=== PATIENT | male | born 1985 | race American Indian/Alaskan Native ===

== ENCOUNTER 2019-07-05 13:14 | Emergency (ER) | payer MEDICAID ==
[2019-07-05 13:24] VITALS: BP 133/77
--- NOTE | 2019-07-05 13:31 | Emergency Department Report ---
- General Chief Complaint: Wound/Laceration Stated Complaint: NOSE BLEED Time Seen by Provider: 07/05/19 13:27 Source: family Mode of arrival: Wheelchair Limitations: Other - History of Present Illness Initial Comments: History provided by the caregiver. pt is a 34 yo male brought in by his caregiver with c/o an abrasion to the right side of his nose that occurred this morning. the caregiver states she took off his breathing machine and he got a small scratch to the right side of the nose. the cargiver states there was some bleeding present. they deny any fall or injury. - Related Data Allergies Allergy/AdvReac Type Severity Reaction Status Date / Time No Known Allergies Allergy Unverified 07/05/19 13:16 ED Review of Systems ROS: Stated complaint: NOSE BLEED Other details as noted in HPI Comment: All other systems reviewed and negative ED Past Medical Hx - Past Medical History Hx Diabetes: Yes Additional medical history: SCIOLOSIS - Surgical History Additional Surgical History: HIP SURG - Social History Smoking Status: Never Smoker Substance Use Type: None ED Physical Exam - General Limitations: Other General appearance: alert, in no apparent distress - Head Head exam: Present: atraumatic, normocephalic - Eye Eye exam: Present: normal appearance - ENT ENT exam: Present: mucous membranes moist, other (0.5 cm abrasion to the right side of the nose with small amount of bleeding preset ) - Neurological Exam Neurological exam: Present: alert - Skin Skin exam: Present: warm, dry ED Course Vital Signs 07/05/19 13:22 Temperature 98.3 F Pulse Rate 98 H Respiratory 22 Rate Blood Pressure 133/77 O2 Sat by Pulse 98 Oximetry ED Medical Decision Making - Medical Decision Making Pt is a 34 yo male brought in by his caregiver with c/o an abrasion to the right side of his nose that occurred this morning. the caregiver states she took off his breathing machine and he got a small scratch to the right side of the nose. the cargiver states there was some bleeding present. they deny any fall or injury. vitals are normal. on exam: 0.5 cm abrasion to the right side of the nose with small amount of bleeding present appears like scratch. pressure held with gauze for 10 minutes and bleeding resolved, bandaid placed. advised caregiver please keep area clean and dry. may wash with soap and water and immediately dry. keep cover. follow up with a primary care doctor. return to the emergency room for any new or worsening symptoms. Critical care attestation.: If time is entered above; I have spent that time in minutes in the direct care of this critically ill patient, excluding procedure time. ED Disposition Clinical Impression: Abrasion Disposition: DC-01 TO HOME OR SELFCARE Is pt being admited?: No Does the pt Need Aspirin: No Condition: Stable Instructions: Abrasion (ED) Additional Instructions: please keep area clean and dry. may wash with soap and water and immediately dry. keep cover. follow up with a primary care doctor. return to the emergency room for any new or worsening symptoms. Referrals: your, primary care doctor [Other] - 3-5 Days Time of Disposition: 13:30 Print Language: FRISIAN
== END 2019-07-05 13:51 | disposition home or self-care (01) ==
LOC: ED 13:14
DX: S00.31XA Abrasion of nose, initial encounter (principal); E11.9 Type 2 diabetes mellitus without complications; X58.XXXA Exposure to other specified factors, initial encounter; Y93.89 Activity, other specified; Y92.89 Other specified places as the place of occurrence of the external cause; Y99.8 Other external cause status
CPT/HCPCS: 99282